=== PATIENT | male | born 1970 | race Caucasian/White ===

== ENCOUNTER 2017-07-17 18:51 | Emergency (ER) | payer MEDICAID ==
[2017-07-17 20:43] VITALS: BP 124/78
--- NOTE | 2017-07-17 20:48 | UC ---
Knee Pain HPI - HPI Summary HPI Summary: Pt reports that he hit his right knee against a metal bolt 2 weeks ago and then dropped a heavy weight on his right upper thigh that slid down and hit right knee. C/o right knee pain and mild swelling. - History of Current Complaint Chief Complaint: UCLowerExtremity Stated Complaint: RIGHT KNEE PAIN Time Seen by Provider: 07/17/17 20:32 Hx Obtained From: Patient Onset/Duration: Gradual Onset, Lasting Weeks, Still Present Severity Initially: Mild Severity Currently: Mild Character: Dull, Aching Aggravating Factor(s): Weight Bearing, Prolonged Standing, Stairs Alleviating Factor(s): Rest Associated Signs And Symptoms: Positive: Swelling Able to Bear Weight: Yes - Allergies/Home Medications Allergies/Adverse Reactions: Allergies Allergy/AdvReac Type Severity Reaction Status Date / Time No Known Allergies Allergy Verified 07/17/17 20:37 Home Medications: Home Medications Ibuprofen TAB* [Motrin TAB* 800 MG] 800 mg PO ONCE 07/17/17 [History Confirmed 07/17/17] PMH/Surg Hx/FS Hx/Imm Hx Previously Healthy: Yes - Surgical History Surgical History: Yes Surgery Procedure, Year, and Place: right knee 2001 - Family History Known Family History: Positive: Cardiac Disease - Social History Occupation: Employed Full-time Lives: With Family Alcohol Use: Rare Substance Use Type: None Smoking Status (MU): Never Smoked Tobacco Have You Smoked in the Last Year: No Review of Systems Constitutional: Negative Skin: Other - healing abrasion to right upper thigh Eyes: Negative ENT: Negative Respiratory: Negative Cardiovascular: Negative Gastrointestinal: Negative Genitourinary: Negative Motor: Negative Neurovascular: Negative Musculoskeletal: Edema - right knee, Myalgia - right knee Neurological: Negative Psychological: Negative Is Patient Immunocompromised?: No All Other Systems Reviewed And Are Negative: Yes Physical Exam Triage Information Reviewed: Yes Appearance: Well-Appearing Vital Signs: Initial Vital Signs Temp 97.8 F 07/17/17 20:30 Pulse 84 07/17/17 20:30 Resp 15 07/17/17 20:30 BP 124/78 07/17/17 20:30 Pulse Ox 100 07/17/17 20:30 Vital Signs Reviewed: Yes Eye Exam: Normal ENT Exam: Normal Neck exam: Normal Respiratory: Positive: No respiratory distress Musculoskeletal Exam: Other Musculoskeletal: Positive: Edema @ - right knee, generalized, Other: Neurological Exam: Normal Psychological Exam: Normal Skin Exam: Normal Knee Pain Course/Dx - Differential Dx/Diagnosis Differential Diagnosis/HQI/PQRI: Contusion, Fracture (Closed), Sprain Provider Diagnoses: right knee contusion. right knee joint swelling Discharge - Discharge Plan Condition: Stable Disposition: HOME Patient Education Materials: Swollen Knee Joint (ED), Knee Pain (ED), RICE Therapy (ED) Referrals: Thad Jolley MD [Medical Doctor] - 2 Weeks (if no improvement in two weeks. ) REMY Laboy [Primary Care Provider] - If Needed
== END 2017-07-17 20:55 | disposition home or self-care (01) ==
LOC: UCCORT 18:51
DX: S80.01XA Contusion of right knee, initial encounter (principal); W22.09XA Striking against other stationary object, initial encounter; W20.8XXA Other cause of strike by thrown, projected or falling object, initial encounter
CPT/HCPCS: 99201; G0463